=== PATIENT | male | born 1975 | race Two or more races ===

== ENCOUNTER 2018-07-02 09:15 | Emergency (ER) | payer MEDICAID ==
[~2018-07-02] VITALS: Ht 167.6 cm; Wt 86.2 kg
[2018-07-02 09:18] VITALS: Ht 167.6 cm; Wt 86.2 kg
[2018-07-02 10:36] VITALS: BP 152/96
== END 2018-07-02 10:35 | disposition home or self-care (01) ==
LOC: ED 09:15
DX: S42.002A Fracture of unspecified part of left clavicle, initial encounter for closed fracture (principal); W17.89XA Other fall from one level to another, initial encounter; Y93.I9 Activity, other involving external motion; Y92.89 Other specified places as the place of occurrence of the external cause; Y99.8 Other external cause status